=== PATIENT | male | born 1945 | race Caucasian/White ===

== ENCOUNTER 2017-03-15 08:17 | Inpatient (IN) | payer MEDICARE, BC ==
[~2017-03-15] VITALS: Ht 177.8 cm; Wt 100.8 kg
--- NOTE | ~2017-03-15 | CON ---
PATIENT'S NAME: MARY [facility]IN [facility] AGE: 72 Y [address] ROOM: [place] [address] [place] [facility] [place] DATE: 03/15/2017 Consultation DISCHARGE DATE: FAMILY PHYSICIAN: LINDA WAGNER MD ATTENDING PHYSICIAN: LINDA WAGNER REFERRING PHYSICIAN: VU ARROYO MD REASON FOR CONSULT: Pancreatitis. HISTORY OF PRESENT ILLNESS: Mr. Shin is a 72-year-old male who was admitted to the emergency room with history of nausea, vomiting, and abdominal pain. Since this morning, he was found to have acute pancreatitis as far elevated amylase and lipase values, and a CT scan of the abdomen revealing evidence of diffuse peripancreatic edema especially towards the head of the pancreas suggestive of acute interstitial pancreatitis. The liver was normal. Biliary tree nondilated. Gallbladder wall thickening noted without inflammation or stones. The patient complains of mid abdominal pain and nausea with evidence of ileus on his abdominal films as well as CT scan of the abdomen. The patient denies any previous similar episodes. However, further questioning does reveal history of generous alcohol use in the form of binge drinking in the form of "6 beers every night" when he plays golf. PAST MEDICAL HISTORY: Hypertension. PAST SURGICAL HISTORY: Remote tonsillectomy as well as history of colonoscopy with removal of colon polyps in 2012. MEDICATIONS: On admission included amlodipine otherwise denies ingestion of any over-the- counter medications or supplements. SOCIAL HISTORY: Denies smoking, previous history of tobacco abuse. Does have history of alcohol intake as noted above. FAMILY HISTORY: Father had colon cancer. The patient's last colonoscopy was 4 years ago. REVIEW OF SYSTEMS: GENERAL: Denies any changes in his weight. Denies fever, chills, fatigue. PATIENT'S NAME: MARY SHIN [facility] AGE: 72 Y [address] ROOM: [place] [address] [place] [facility] [place] DATE: 03/15/2017 Consultation DISCHARGE DATE: FAMILY PHYSICIAN: LINDA WAGNER MD ATTENDING PHYSICIAN: LINDA WAGNER SKIN: Denies rash, discolorations. HEAD, EYES, AND EARS: Denies headaches, dizziness, or seizures. RESPIRATORY: Denies cough or shortness of breath. CARDIOVASCULAR: Denies chest pain or orthopnea. GASTROINTESTINAL: As noted in the HPI. GENITOURINARY: Denies frequency, hematuria, or dysuria. ENDOCRINE: Negative for diabetes. MUSCULOSKELETAL: Denies joint pain or arthralgias. NEUROLOGIC: Denies weakness or seizures. PHYSICAL EXAMINATION: GENERAL: A well-developed, well-nourished man, in mild distress in view of mid abdominal pain. VITAL SIGNS: As recorded are stable. HEENT: Nonicteric sclerae. Pupils are round and reactive. NECK: Supple. No palpable nodes. No thyromegaly. CHEST: Clear to auscultation. HEART: S1 and S2 normal. ABDOMEN: Soft and mildly distended with upper abdominal tenderness. Bowel sounds are decreased. RECTAL: Not done. EXTREMITIES: No joint swelling. Normal range of motion. Pulses well palpable. NEUROLOGIC: Awake, alert, and appropriate. No focal deficits. LABORATORY DATA: Labs reviewed revealing white cell count of 11.8, hemoglobin 15.9, and hematocrit 50.4. Chemistry panel reveals BUN of 26 and creatinine 0.8. Liver function tests are normal with total bilirubin of 1.2. Alkaline phosphatase 71, ALT 23, AST 23. Serum amylase of 366. Serum lipase of 11,956. CT scan of the abdomen as noted above. ASSESSMENT AND PLAN: A 72-year-old male presenting with acute pancreatitis as per biochemical and radiological criteria. There is no evidence of dilated ducts and no evidence of gallstones as per CT scan evaluation. His liver function tests are also normal. He does have a history of generous alcohol intake of about "6 beers once a week" after his golfing sessions. He is vague about his alcohol intake. He does have evidence of hemoconcentration with hematocrit of 50.4 as well as BUN of 26, borderline high creatinine of 0.8. The patient's care was discussed with his referring physician. We will PATIENT'S NAME: MARY [facility]IN [facility] AGE: 72 Y [address] ROOM: [address] [address] LOC[place]: [facility] [place] DATE: 03/15/2017 Consultation DISCHARGE DATE: FAMILY PHYSICIAN: LINDA WAGNER MD ATTENDING PHYSICIAN: LINDA WAGNER resuscitate him with IV fluids aggressive. Give him bolus of Ringer's lactate as well as 250 mL/h of maintenance fluids. At this point, he is not showing any signs of SIRS. We will continue with hydration IV H2 blockers and obtain followup labs in the morning as well as check a triglyceride levels and abdominal ultrasound. More than likely, this will settle down with conservative management. Risk factors for his underlying acute pancreatitis include alcohol intake and morbid obesity. VU ARROYO MD AM/terry /[id number] d: 03/15/17 1504 t: 03/16/17 0953, CONSULTATION REPORT
--- NOTE | ~2017-03-15 | HP ---
PATIENT'S NAME: SIMEON NYE [facility] AGE: 72 Y [address] ROOM: [place] [address] LOCATION: [facility] [place] ADMIT DATE: 03/15/2017 History & Physical DISCHARGE DATE: FAMILY PHYSICIAN: LINDA WAGNER MD ATTENDING PHYSICIAN: LINDA WAGNER DATE OF SERVICE: CHIEF COMPLAINT: Abdominal pain. HISTORY OF PRESENT ILLNESS: Simeon is a 72-year-old, , white male, burgos who presented to the emergency room today and was seen by Dr. Dilip Beard. The patient presented with epigastric pain. His evaluation in the emergency room showed an amylase of 366 which is elevated and lipase over 11,000, which is elevated. His white count was normal. His hemoglobin is fine. His electrolytes were normal. He has no history of trauma. He is a nondrinker. His CT scan in the ER showed acute pancreatitis with interstitial edema. No other complicating feature. I refer the reader of this note to the CT report. The patient's chest x-ray is unremarkable. Urine, unremarkable. No history of gallstones in the past. No previous abdominal operations. He has felt nauseated, near vomiting, and severe epigastric pain since this morning. He is admitted at this time. I did originally asked for a GI consultation and talked to Dr. Devine today at lunch, and he reviewed the patient's CT findings and laboratories and it was felt that we should do the followin. Increase the patient's IV rate for further hydration, treat the patient's pain, and recheck labs in the morning and those changes have been instituted. I have discussed this with the family and patient and they understand. PAST MEDICAL HISTORY: MEDICATIONS: None. ALLERGIES: SEE NURSE'S NOTES. PAST SURGICAL HISTORY: Previous Operations: See nurse's database form. PATIENT'S NAME: SIMEON NYE [facility] AGE: 72 Y [address] ROOM: [place] [address] LOCATION: [facility] [place] ADMIT DATE: 03/15/2017 History & Physical DISCHARGE DATE: FAMILY PHYSICIAN: LINDA WAGNER MD ATTENDING PHYSICIAN: LINDA WAGNER SOCIAL HISTORY: Does not smoke. FAMILY HISTORY: Noncontributory for problems with general anesthesia or bleeding disorder. IMMUNIZATIONS: Up to date for age. REVIEW OF SYSTEMS: HEENT: He has had no visual changes, ear ache, or sore throat. ENDOCRINE: He is not diabetic. There is no thyroid disease. LUNGS: No history of asthma. HEART: No history of hypertension, chest pain, or previous NV. GASTROINTESTINAL: As above. No previous history of pancreatitis or gallbladder disease or ulcer disease. No recent melena. No change in bowel habits. No diarrhea. No vomiting. GENITOURINARY: No dysuria or frequency. EXTREMITIES: Generalized osteoarthritis. MENTAL STATUS: No history of recent depression or anxiety. SKIN: No recent rashes. PHYSICAL EXAMINATION: GENERAL APPEARANCE: A dark haired male, mild distress. Lying in bed, pointing to pain in his epigastrium. He is oriented to person, place, and time, and competent. HEENT: Shows pupils react to light. TMs normal. Posterior pharynx is clear. Mucous murmurs are slightly dry. NECK: Unremarkable. LUNGS: Clear to auscultation bilaterally. ABDOMEN: Shows mild tenderness in the epigastrium with decreased bowel sounds. No palpable mass or acute belly signs. PELVIC AND RECTAL: Not done. EXTREMITIES: Unremarkable. Pulses felt throughout. Degenerative changes noted in the upper and lower extremities. NEUROLOGIC: Grossly intact without lateralizing signs. Cranial nerves intact. SKIN: Shows no gross abnormality. MENTAL STATUS: Normal with no cognitive changes. LABORATORY DATA AND IMAGING STUDIES: Labs; noted. CT; noted. PATIENT'S NAME: SIMEON NYE [facility] AGE: 72 Y [address] ROOM: [place] [address] LOCATION: [facility] [place] ADMIT DATE: 03/15/2017 History & Physical DISCHARGE DATE: FAMILY PHYSICIAN: LINDA WAGNER MD ATTENDING PHYSICIAN: LINDA WAGNER UA; noted. Chest x-ray; noted. ASSESSMENT: Acute epigastric pain secondary to acute pancreatitis. PLAN: As above. LINDA WAGNER MD PASSENGER COACH DRIVER/modl /[id number] D: [id number] T: [id number] HISTORY & PHYSICAL
--- NOTE | ~2017-03-15 | DS ---
PATIENT'S NAME: MARY NYE [facility] AGE: 72 Y [address] ROOM: [address] [address] [place] [facility] [place]: 03/15/2017 Discharge Summary DISCHARGE DATE: 03/20/2017 FAMILY PHYSICIAN: Kevin Wagner MD ATTENDING PHYSICIAN: Kevin Wagner FINAL DIAGNOSES: 1. Acute pancreatitis, etiology undetermined. 2. Abdominal pain, [id number], resolving secondary to acute pancreatitis, etiology undetermined. 3. Hypertension, essential. HOSPITAL COURSE: This patient was admitted came in to the hospital Emergency Room and was found to have an elevated lipase and amylase, and CAT scan showing acute pancreatitis without other complicating feature. Please see the ER report. Please see my history and physical. The patient is on bedrest, given IV fluids and kept n.p.o. I consulted Dr. Devine accounts adjustable clerk wildlife policy professional. Please see his dictation chart and daily notes. The patient had serial labs done that showed resolution of his elevated amylase and lipase trending back towards normal. The patient's white count was trending down prior to dismissal also . Prior to leaving the hospital, he was noted to have labs that were coming back towards normal, chest X-ray here was unremarkable. CT scan showed . His abdominal films later during his hospitalization were not revealing of any other complicating feature. Prior to going home, he was tolerating a soft diet well, and ambulating without symptoms. He has had no fever. Dismissed on [facility] one week earlier if he has nausea, vomiting, fever, chills, or increasing abdominal pain. He understands. KEVIN WAGNER MD MANAGER FRONT OFFICE/modl /[id number] d: 03/21/17 0111 t: 03/22/17 0737, DISCHARGE SUMMARY
--- NOTE | ~2017-03-15 | ER ---
PATIENT'S NAME: MARY NYE [facility] AGE: 72 Y [address] ROOM: [place] [address] LOCATION: [facility] [place] ADMIT DATE: 03/15/2017 ER/Outpatient Report DISCHARGE DATE: FAMILY PHYSICIAN: LINDA GARAY MD ATTENDING PHYSICIAN: LINDA GARAY CHIEF COMPLAINT: Abdominal pain. HISTORY OF PRESENT ILLNESS: Around 6:00 a.m., this patient was having breakfast. He had had a roll and was drinking his coffee, when he had severe onset of pressure-like squeezing in the epigastrium. It is slightly on the right side. It may radiate to the back. It is unclear. He has not tried anything to make this better. He has not seen a doctor in several years, but does note that he doctors with Linda Garay MD. He states that he takes no medicines and has no known allergies. He was spraying some weed yesterday, but otherwise has been feeling okay. Did not have any trouble sleeping. He states he has never had anything like this before. PAST MEDICAL HISTORY: Documented in the record and reviewed by me. SOCIAL HISTORY: Documented in the record and reviewed by me. MEDICATIONS: Documented in the record and reviewed by me. ALLERGIES: DOCUMENTED IN THE RECORD AND REVIEWED BY ME. REVIEW OF SYSTEMS: All systems were reviewed and negative except as noted in the HPI. PHYSICAL EXAMINATION: VITAL SIGNS: Blood pressure 188/90, pulse 54, respiratory rate 16, temperature 96.0 degrees, and SpO2 is 96% on room air. Pain is rated at 9/10. GENERAL: Age-appropriate male, in obvious pain. No respiratory distress. Semirecumbent on the exam table. NEUROLOGIC: Awake and alert. GCS 15. No focal deficits. No asymmetry. HEENT: Normocephalic and atraumatic. Eyes are PERRL. Oropharynx is clear. NECK: Supple. Trachea is midline. CHEST: Heart is regular rate and rhythm. No obvious murmurs. LUNGS: Clear to auscultation bilaterally with no rhonchi, wheezes, or rales. PATIENT'S NAME: MARY NYE [facility] AGE: 72 Y [address] ROOM: [place] [address] LOCATION: [facility] [place] ADMIT DATE: 03/15/2017 ER/Outpatient Report DISCHARGE DATE: FAMILY PHYSICIAN: LINDA GARAY MD ATTENDING PHYSICIAN: LINDA GARAY ABDOMEN: Diffusely tender in the epigastrium. There is slight guarding. No masses. Guarding was markedly improved with flexion of the hips and knees. No masses, and tenderness was markedly improved. BACK: Normal to inspection and palpation. EXTREMITIES: Warm and well perfused. SKIN: Diaphoretic and pale on presentation. LABORATORY DATA AND IMAGING STUDIES: Labs and X-rays: CT scan of the abdomen consistent with pancreatitis, diffuse, most prominent at the head. Plain films of the abdomen and chest, grossly unremarkable per my review, perhaps slight ileus. EKG; sinus rhythm, rate of 52, and first-degree heart block. Otherwise, normal intervals and axis. No signs of acute ischemia. No comparison available. Labs: Procalcitonin is below threshold. CMS; chloride of 112, glucose 154, and BUN is 26. Renal function is within normal limits. No hepatobiliary abnormalities. Amylase and lipase are 366 and 11,956 respectively. GGT is 29. CK-MB and troponin are below the concerning threshold. CBC; white count of 11.8, hemoglobin 15.9, and platelets of 355,000. INR is 1.0. Urinalysis; no evidence of infection. Serum lactate is 2.0. IMPRESSION: Acute pancreatitis of unclear etiology, possibly alcohol. EMERGENCY DEPARTMENT COURSE: The patient was seen and evaluated as above. He was started on a fluid bolus and was given some fentanyl for pain and Zofran for nausea. He had marked improvement in his symptoms. Laboratory was obtained entertaining a broad differential including ACS, pneumonia, hepatobiliary disease, and pancreatitis. Plain films were obtained to ensure that he had no free air or perforation indicating acute surgical emergency and were negative. The patient did end up having pancreatitis based on laboratory values. His clinical presentation is consistent. Case was discussed with Dr. Garay to admit the patient to the hospital. I did consult Dr. Devine, Gastroenterology for evaluation and consult with the admission team. All questions were answered, and the patient was taken to the floor in good condition. MD ANTONINA WYNNE/terry PATIENT'S NAME: MARY NYE [facility] AGE: 72 Y [address] ROOM: [place] [address] LOCATION: [facility] [place] ADMIT DATE: 03/15/2017 ER/Outpatient Report DISCHARGE DATE: FAMILY PHYSICIAN: LINDA GARAY MD ATTENDING PHYSICIAN: LINDA GARAY /[id number] d: 03/15/172048 t: 03/25/17 0702, OUTPATIENT REPORT
[2017-03-15 08:59] LABS: BILIRUBIN URINE NEGATIVE (NEGATIVE); BLOOD URINE NEGATIVE /UL (NEGATIVE); COLOR URINE YELLOW (YELLOW); GLUCOSE URINE NEGATIVE (NEGATIVE); KETONE URINE NEGATIVE (NEGATIVE); LEUKOCYTES URINE NEGATIVE /UL (NEGATIVE); NITRITE URINE NEGATIVE (NEGATIVE); PROTEIN URINE 15 mg/dL (NEGATIVE); TURBIDITY URINE CLEAR (CLEAR); UROBILINOGEN URINE NORMAL (NORMAL)
[2017-03-15 09:12] LABS: BASOPHIL # 0.1 K/uL (0.0-0.2); BASOPHIL % 0.7 %; EOSINOPHIL # 0.1 K/uL (0.0-0.5); EOSINOPHIL % 0.8 %; HEMATOCRIT 50.4 % (37.0-53.0); HEMOGLOBIN 15.9 g/dL (11.0-16.0); IMMATURE GRANULOCYTE # 0.1 K/uL (0.0-0.3); IMMATURE GRANULOCYTE % 0.9 %; LYMPHOCYTE # 1.1 K/uL (0.8-4.0); LYMPHOCYTE % 8.9 %; MCH 23.5 pg (27.0-34.0); MCHC 31.5 gm/dL (32.0-36.5); MCV 74.3 fl (83.0-98.0); MONOCYTE # 0.5 K/uL (0.0-1.0); MONOCYTE % 3.8 %; MPV 11.1 fl (9.4-12.4); NEUTROPHIL % 84.9 %; NRBC % 0 /100WBC (0-0.00); PLATELET COUNT 355 K/uL (150-450); RBC 6.78 M/uL (3.50-5.50); RDW-CV 17.8 % (11.9-14.6); WBC 11.8 K/uL (4.0-11.0)
[2017-03-15 09:17] LABS: INR - (THERAPEUTIC) 1.02 (0.92-1.07); PROTIME 10.7 SECONDS (9.8-11.4); PTT 22 SECONDS (25-32)
[2017-03-15 09:18] LABS: RBC URINE NEGATIVE #/HPF (NEGATIVE); WBC URINE 0-2 #/HPF (NEGATIVE)
[2017-03-15 09:19] LABS: BACTERIA URINE FEW (NEGATIVE); EPITHELIAL URINE 0-2 #/HPF (NEGATIVE); MUCUS URINE 2+ (NEGATIVE)
[2017-03-15 09:41] LABS: ALBUMIN 4.1 gm/dL (3.5-5.0); ALK PHOS 71 IU/L (33-138); ALT 23 IU/L (12-78); ANION GAP 12.3 (10.0-19.0); AST 23 IU/L (10-40); BLOOD UREA NITROGEN 26 mg/dL (6-24); CALCIUM 8.9 mg/dL (8.5-10.5); CHLORIDE 112 mMol/L (96-110); CO2 25 mMol/L (22-32); CREATININE 0.8 mg/dL (0.6-1.3); ESTIMATED GFR (MDRD EQUATION) > 60; POTASSIUM 4.3 mMol/L (3.7-5.1); SODIUM 145 mMol/L (135-145); TOTAL BILIRUBIN 1.2 mg/dL (0.0-1.5); TOTAL PROTEIN 6.9 g/dL (6.0-8.4)
--- NOTE | 2017-03-15 12:48 | NUR ---
72 Y/O MALE ADMITTED FOR PANCREATITIS. PT STATES HE AWOKE THIS MORNING, HAD A CUP OF COFFE & A WHOLE WHEAT MUFFIN, THEN BEGAN HAVING SEVERE ABDOMINAL PAIN WITH NAUSEA & VOMITING WELL DIAPHORETIC. PT BROUGHT HIM TO THE .[facility], PT IS A&OX3. PT CURRENTLY APPEARS & STATES HE IS IN PAIN & HAS A LOT OF NAUSEA. MEDICAL & SURGICAL HISTORY - TONSILS REMOVED AN ADULT. PT DID HAVE THE CHICKEN POX AN ADULT. PT ONLY C/O SOB THIS MORNING R/T THE PAIN IN HIS ABDOMEN THAT HE WAS & IS HAVING. DENIES ANY CHEST PAIN. DIFFICULTY WITH URINE STREAM. PT USED TO CHEW TOBACCO BUT STATES HE QUIT YRS AGO, PT ADMITS TO DRINKING APPRX 1 DAY WEEKLY & HAS ABOUT 6 DRINKS AT THAT TIME. PT STATES THAT HE HAD ONE BEER ON SATURDAY. PT DOES ADMIT THAT HE HAS NOT BEEN TO SEE A DOCTOR FOR YEARS AND IS NOT CURRENTLY ON ANY MEDICAITONS. REPORT GIVEN TO PT PRIMARY CARE NURSE TARYN ROBERT ADM EDUCATION DONE WITH PT & HIS .
--- NOTE | 2017-03-15 19:06 | NUR ---
Patient is alert and oriented, hypertensive, Norvasc given. IV to R) forearm infusing NS at 250ml/hr. 1000ml LR bolus given today. Morphine last given at 1900 and zofran around 1700. Independent in room. NPO.
--- NOTE | 2017-03-16 05:06 | NUR ---
Significant Event: Patient alert and oriented X4. UP with stand by assist. NS running at 250ml to R) forearm. Denies nausea. Morphine 2-4 mg can be given every 1 hr. 4mg last given at 0345. States it helps. Just can't get comfortable. NPO. US of gallbladder done yesterday. GI on board. Started on NOrvacc Follow up:
[2017-03-16 05:22] LABS: BASOPHIL % 0.2 %; HEMATOCRIT 43.6 % (37.0-53.0); HEMOGLOBIN 13.9 g/dL (11.0-16.0); IMMATURE GRANULOCYTE # 0.1 K/uL (0.0-0.3); IMMATURE GRANULOCYTE % 0.6 %; LYMPHOCYTE # 0.9 K/uL (0.8-4.0); LYMPHOCYTE % 4.6 %; MCH 23.7 pg (27.0-34.0); MCHC 31.9 gm/dL (32.0-36.5); MCV 74.4 fl (83.0-98.0); MONOCYTE # 1.1 K/uL (0.0-1.0); MPV 10.9 fl (9.4-12.4); NEUTROPHIL # (ANC) 16.2 K/uL (1.4-9.0); NEUTROPHIL % 88.6 %; NRBC % 0 /100WBC (0-0.00); PLATELET COUNT 364 K/uL (150-450); RBC 5.86 M/uL (3.50-5.50); RDW-CV 17.1 % (11.9-14.6)
[2017-03-16 05:24] LABS: WBC 18.3 K/uL (4.0-11.0)
[2017-03-16 05:41] LABS: ALK PHOS 52 IU/L (33-138); ALT 36 IU/L (12-78); AST 25 IU/L (10-40); BLOOD UREA NITROGEN 23 mg/dL (6-24); CALCIUM 7.5 mg/dL (8.5-10.5); CHLORIDE 115 mMol/L (96-110); CO2 26 mMol/L (22-32); CREATININE 0.8 mg/dL (0.6-1.3); ESTIMATED GFR (MDRD EQUATION) > 60; TOTAL BILIRUBIN 1.2 mg/dL (0.0-1.5); TOTAL PROTEIN 5.6 g/dL (6.0-8.4)
[2017-03-16 05:42] LABS: SODIUM 146 mMol/L (135-145)
--- NOTE | 2017-03-16 17:20 | NUR ---
Afebrile with VSS except for a high systolic BP (149-162). IV running NS at 250ml/hr in right forearm. Patient c/o of severe abdominal pain, has recieved 4mg of IV morphine every 2-3 hours. Patient has gotten up to ambulate in reagan 3 times today. NPO but ordered that he can have ice chips. Ambulates well with standby assist. NO BM or flatus, BS hypoactive. Denies feelings of nausea. Patient and family pleasant throughout shift
--- NOTE | 2017-03-16 18:30 | NUR ---
D: CARE COMPLETED BY ANGIE MCKENZIE REVIEWED I AGREE WITH DOCMENTATION AND CARE.
--- NOTE | 2017-03-17 04:36 | NUR ---
Significant Event: Patient is alert and oriented x 3. VSS on room air. Up with SBA. Bowel sounds are hypoactive. Right forearm IV with NS running at 250 ml/hr. Morphine given for pain last at 0127. NPO, but can have ice chips. Patient is pleasant and cooperative with cares. Follow up:
[2017-03-17 06:12] LABS: BASOPHIL # 0.1 K/uL (0.0-0.2); BASOPHIL % 0.3 %; HEMATOCRIT 44.1 % (37.0-53.0); HEMOGLOBIN 14.3 g/dL (11.0-16.0); IMMATURE GRANULOCYTE # 0.3 K/uL (0.0-0.3); IMMATURE GRANULOCYTE % 1.1 %; LYMPHOCYTE # 0.8 K/uL (0.8-4.0); LYMPHOCYTE % 3.5 %; MCH 24.2 pg (27.0-34.0); MCHC 32.4 gm/dL (32.0-36.5); MCV 74.5 fl (83.0-98.0); MONOCYTE # 1.4 K/uL (0.0-1.0); MONOCYTE % 5.9 %; MPV 11.8 fl (9.4-12.4); NEUTROPHIL # (ANC) 21.4 K/uL (1.4-9.0); NEUTROPHIL % 89.2 %; NRBC % 0 /100WBC (0-0.00); PLATELET COUNT 353 K/uL (150-450); RBC 5.92 M/uL (3.50-5.50); RDW-CV 17.9 % (11.9-14.6)
[2017-03-17 06:16] LABS: WBC 23.9 K/uL (4.0-11.0)
[2017-03-17 09:51] LABS: ALK PHOS 58 IU/L (33-138); ALT 26 IU/L (12-78); AST 24 IU/L (10-40); BLOOD UREA NITROGEN 20 mg/dL (6-24); CO2 22 mMol/L (22-32); CREATININE 0.7 mg/dL (0.6-1.3); ESTIMATED GFR (MDRD EQUATION) > 60; POTASSIUM 3.6 mMol/L (3.7-5.1); TOTAL BILIRUBIN 1.3 mg/dL (0.0-1.5); TOTAL PROTEIN 5.9 g/dL (6.0-8.4)
[2017-03-17 09:52] LABS: ANION GAP 10.6 (10.0-19.0); CHLORIDE 117 mMol/L (96-110); SODIUM 146 mMol/L (135-145)
--- NOTE | 2017-03-17 15:20 | NUR ---
Patient afebrile with VSS. BP remains hypertensive (174/95 - 161/88). IV in right forearm turned down to 75ml/hr running NS. No request for morphine throughout shift, last given 4mg @ 0127. BS hypoactive, given Dulcolax suppository @ 1222. 3 very small BMs this shift. Patient up and ambulating in halls x4. Patient remains at NPO status.
--- NOTE | 2017-03-17 18:53 | NUR ---
D: ASSESSMENT AND CHARTING REVIEWED COMPLETED BY SN ROSINA I AGREE WITH DOCUMENTATION AND ASSESSMENT.
--- NOTE | 2017-03-18 03:44 | NUR ---
Significant Event: Pt alert and Oriented x3. Cooperative with cares. independent in room will call if he is feeling unsteady or needs help. denied pain most of shift but requested morphine on second assesment. 2 mg given with relief. NS 75 ML/HR. VSS. rested on and off through out the night. Follow up:
[2017-03-18 06:16] LABS: BASOPHIL # 0.1 K/uL (0.0-0.2); BASOPHIL % 0.3 %; EOSINOPHIL % 0.1 %; HEMATOCRIT 40.4 % (37.0-53.0); HEMOGLOBIN 13.4 g/dL (11.0-16.0); IMMATURE GRANULOCYTE # 0.3 K/uL (0.0-0.3); IMMATURE GRANULOCYTE % 1.6 %; LYMPHOCYTE # 0.9 K/uL (0.8-4.0); LYMPHOCYTE % 4.3 %; MCH 23.8 pg (27.0-34.0); MCHC 33.2 gm/dL (32.0-36.5); MCV 71.9 fl (83.0-98.0); MONOCYTE # 1.2 K/uL (0.0-1.0); MONOCYTE % 5.5 %; MPV 11.5 fl (9.4-12.4); NEUTROPHIL # (ANC) 18.7 K/uL (1.4-9.0); NEUTROPHIL % 88.2 %; NRBC % 0 /100WBC (0-0.00); PLATELET COUNT 360 K/uL (150-450); RBC 5.62 M/uL (3.50-5.50); RDW-CV 16.8 % (11.9-14.6); WBC 21.2 K/uL (4.0-11.0)
--- NOTE | 2017-03-18 13:30 | NUR ---
Introduced self and role of care management to patient, his and a daughter. [place] . He hopes to go home in a few days. Does not anticiapte discharge needs at this time. Will follow.
--- NOTE | 2017-03-18 14:43 | NUR ---
Significant Event: pt c/o bloating but otherwise no pain. had 1 inc diarrhea x1. Clear liquids started, doing well. bp 170's-180's systolic, on bp meds. Up with standby assist, ambulates in reagan. Follow up:
--- NOTE | 2017-03-19 03:45 | NUR ---
Significant Event: A/O X3 AND COOPERATIVE WITH CARES. DENIES PAIN BUT CONTINUES TO C/O ANY "UNEASY" STOMACH. RECOMMENDED BACKING OFF ON THE FLUIDS TO SIPS OF CLEARS AND ICE CHIPS. HAS HAD A COUPLE VERY SMALL BILE CONSISTANCY BM'S. PATIENT REPORTS BOTTOM IS GETTING VERY SORE AND RAW, GAVE BOTTLE OF ALOE VESTA TO HELP APPLY TO BOTTOM AND PATIENT REPORTS IT IS HELPING. BLOOD PRESSURE REMAIN ELEVATED IN 160'S-170'S. IV TO R) FA FLUSHES WELL AND IV FLUIDS INFUSING WITHOUT DIFFICULTY. SLEPT OFF/ON THROUGH NIGHT. Follow up:
--- NOTE | 2017-03-19 16:34 | NUR ---
AAOx3. Cooperative with cares. Up independently in hallways numerous times today. Showered independently. Tolerating clear liquids. Advanced to full liquid for supper. If tolerating advance to soft in a.m. IVF to LFA @75ml/hr. Denies pain, nausea, vomiting, diarrhea. No PRN meds given.
--- NOTE | 2017-03-20 01:08 | NUR ---
SIGNIFICANT EVENT: Pt alert & oriented. Hypertensive: 161 to 177 over 85 to 95. Other VSS on RA. R) FA IV infusing NS at 75 mL/hr. Liquid diet, advance to low fat as dejan. Denies nausea/pain this shift. Ate approx 75% of dinner liquids - states feeling full but no nausea. 1 BM so far this shift. Independent in room. Showered last night - prefers evening shower. Pleasant and cooperative with cares.
[2017-03-20 04:36] LABS: BASOPHIL # 0.1 K/uL (0.0-0.2); BASOPHIL % 0.3 %; EOSINOPHIL # 0.1 K/uL (0.0-0.5); EOSINOPHIL % 0.5 %; HEMATOCRIT 41.1 % (37.0-53.0); IMMATURE GRANULOCYTE # 0.4 K/uL (0.0-0.3); LYMPHOCYTE # 0.9 K/uL (0.8-4.0); LYMPHOCYTE % 4.9 %; MCH 24.4 pg (27.0-34.0); MCHC 34.1 gm/dL (32.0-36.5); MCV 71.6 fl (83.0-98.0); MONOCYTE # 1.4 K/uL (0.0-1.0); MONOCYTE % 7.2 %; MPV 11.2 fl (9.4-12.4); NEUTROPHIL # (ANC) 16.1 K/uL (1.4-9.0); NEUTROPHIL % 85.1 %; NRBC % 0 /100WBC (0-0.00); PLATELET COUNT 426 K/uL (150-450); RBC 5.74 M/uL (3.50-5.50); RDW-CV 17.4 % (11.9-14.6)
[2017-03-20 04:41] LABS: WBC 18.9 K/uL (4.0-11.0)
--- NOTE | 2017-03-20 08:48 | NUR ---
A - PT SCREENED D/T LOS. ADMITTED W/ PANCREATITIS. NO RECENT LABS. PERTINENT MEDS: PEPCID, ZOFRAN. BMI IN OBESE RANGE. PT HAS BEEN ON CL/FL DIET SINCE ADMISSION; LOW FAT SOFT DIET THIS AM. INTAKE HAS BEEN 0-75%. D - AT RISK W/ INADEQUATE ORAL INTAKE R/T NEED FOR LIQUID DIET AEB DIET ORDER. I - GOAL: 50-75% INTAKE OF CURRENT DIET BY DISMISSAL. M/E - 1) WILL SEND ENSURE CLEAR BID (NO FAT CONTENT) TO INCREASE ENERGY AND PROTEIN ALLOWANCE AND MONITOR ORAL INTAKE.
[2017-03-20 14:15] LABS: BILIRUBIN URINE NEGATIVE (NEGATIVE); BLOOD URINE 25 /UL (NEGATIVE); COLOR URINE YELLOW (YELLOW); GLUCOSE URINE 100 mg/dL (NEGATIVE); KETONE URINE NEGATIVE (NEGATIVE); LEUKOCYTES URINE NEGATIVE /UL (NEGATIVE); NITRITE URINE NEGATIVE (NEGATIVE); PROTEIN URINE 30 mg/dL (NEGATIVE); SPEC GRAVITY URINE 1.015 (1.003-1.035); TURBIDITY URINE CLEAR (CLEAR); UROBILINOGEN URINE 4 mg/dL (NORMAL)
[2017-03-20 14:39] LABS: EPITHELIAL URINE 0-2 #/HPF (NEGATIVE); WBC URINE 0-2 #/HPF (NEGATIVE)
[2017-03-20 15:19] LABS: AMORPHOUS URINE 2+ (NEGATIVE); BACTERIA URINE NEGATIVE (NEGATIVE)
[2017-03-20 15:23] LABS: SPERM URINE 0-2 #/HPF (NEGATIVE)
--- NOTE | 2017-03-20 16:00 | NUR ---
Spoke with patient and . He is ambulating in the reagan. He hopes to go home soon. Will follow.
--- NOTE | 2017-03-20 16:04 | NUR ---
Pt alert & oriented X3. Hypertensive. 163-192 over 87-115. Other VSS on room air. R) FA IV infusing NS at 75 ml/hr. Soft diet. Denies nausea and pain this shift. Ate 100% of lunch. 1 BM in the adapted physical education teacher. Independent in room. Pleasant and cooperative with cares.
[2017-03-20] MEDS ORDERED: NORVASC5 MG PO (16:45)
[2017-03-20] MEDS ORDERED: TOPROL XL 5050 MG PO (16:51)
--- NOTE | 2017-03-20 17:17 | NUR ---
DISCHARGE: D: ORDERS RECEIVED FOR THE PATIENT TO BE DISCHARGED TO HOME TODAY WITH HIS . I: DISMISSAL INSTRUCTIONS WERE PREPARED AND REVIEWED WITH THE PATIENT VIRTUALLY AND THEY REVIEWED WITH HIS . THE FOLLOWING INFORMATION WAS DISCUSSED INCLUDING [employer]RAMES TEACHING SHEETS PROVIDED: DISCHARGE INSTRUCTIONS FOR ACUTE PANCREATITIS, CT SCAN, TAKING AMLODIPINE, AMLODIPINE AND TOPROL XL. REVIEWED ALL FOLLOW UP VISITS AND A CT SCAN OF HIS ABDOMIN AND PELVIS WITH ORAL AND IV CONTRAST AT [facility] IN 2 WEEKS. R: THE PATIENT AND HIS BOTH VERBALIZED UNDERSTANDING OF THE DISMISSAL EDUCATION AT THE TIME OF TEACHING WITH NO FURTHER QUESTIONS. P: THE ABOVE INFORMATION WAS SHARED WITH THE PRIMRY NURSE AND THE CHARGE NURSE THAT THE PATIENT'S DISMISSAL EDUCATION WAS COMPLETED. THE PATIENT IS READY FOR DISCHARGE TO THE FRONT DOOR VIA WHEEL CHAIR BY NURSING STAFF.
== END 2017-03-20 17:39 | disposition disaster alternative care site (69) | DRG 439 ==
LOC: GMED 08:17 → GMSU 10:23
PROVIDERS: Emergency Medicine; Internal Medicine Gastroenterology; ADMIT Family Medicine
DX: K85.20 Alcohol induced acute pancreatitis without necrosis or infection (principal); K56.7 Ileus, unspecified; I10 Essential (primary) hypertension; M15.9 Polyosteoarthritis, unspecified; Z86.010 Personal history of colon polyps; E66.01 Morbid (severe) obesity due to excess calories; Z68.31 Body mass index [BMI] 31.0-31.9, adult
CPT/HCPCS: J1650; J2270; J2405; J3010; J7030; J7120

== ENCOUNTER → 2017-04-03 | Outpatient (CLI) | payer MEDICARE, BC ==
[~2017-04-03] MED LIST: NORVASC5 MG PO; TOPROL XL 5050 MG PO
== END | disposition disaster alternative care site (69) ==
LOC: GRAD 08:26
DX: K85.90 Acute pancreatitis without necrosis or infection, unspecified (principal); K86.89 Other specified diseases of pancreas
CPT/HCPCS: Q9967

== ENCOUNTER → 2017-05-30 | Outpatient (CLI) | payer MEDICARE, BC ==
[2017-05-30 09:29] LABS: BASOPHIL # 0.1 K/uL (0.0-0.2); BASOPHIL % 0.9 %; EOSINOPHIL # 0.2 K/uL (0.0-0.5); EOSINOPHIL % 2.3 %; HEMATOCRIT 41.4 % (37.0-53.0); HEMOGLOBIN 13.2 g/dL (11.0-16.0); IMMATURE GRANULOCYTE % 0.6 %; LYMPHOCYTE # 1.5 K/uL (0.8-4.0); LYMPHOCYTE % 23.6 %; MCH 23.9 pg (27.0-34.0); MCHC 31.9 gm/dL (32.0-36.5); MCV 74.9 fl (83.0-98.0); MONOCYTE # 0.5 K/uL (0.0-1.0); MONOCYTE % 7.4 %; MPV 11.5 fl (9.4-12.4); NEUTROPHIL # (ANC) 4.2 K/uL (1.4-9.0); NEUTROPHIL % 65.2 %; NRBC % 0 /100WBC (0-0.00); PLATELET COUNT 276 K/uL (150-450); RBC 5.53 M/uL (3.50-5.50); RDW-CV 16.2 % (11.9-14.6); WBC 6.5 K/uL (4.0-11.0)
[2017-05-30 09:43] LABS: ALBUMIN 3.4 gm/dL (3.5-5.0); ALK PHOS 63 IU/L (33-138); ALT 21 IU/L (12-78); AST 13 IU/L (10-40); BLOOD UREA NITROGEN 24 mg/dL (6-24); CALCIUM 8.4 mg/dL (8.5-10.5); CHLORIDE 111 mMol/L (96-110); CO2 28 mMol/L (22-32); CREATININE 0.7 mg/dL (0.6-1.3); POTASSIUM 4.2 mMol/L (3.7-5.1); TOTAL PROTEIN 6.4 g/dL (6.0-8.4)
[2017-05-30 09:50] LABS: ANION GAP 12.2 (10.0-19.0); SODIUM 147 mMol/L (135-145)
== END | disposition disaster alternative care site (69) ==
LOC: GRAD 09:01 → GLAB 10:00
PROVIDERS: Internal Medicine Gastroenterology
DX: K85.90 Acute pancreatitis without necrosis or infection, unspecified (principal)